=== PATIENT | male | born 1985 | race African-American/Black ===

== ENCOUNTER 2019-08-08 14:30 | Inpatient (IN) | payer OTHER ==
[2019-08-08 15:00] VITALS: BMI 20.5
--- NOTE | 2019-08-08 15:23 | HP ---
CIWA Score - Admission Criteria [facility] Guidelines: Admission for Medically Managed Detox: Requires at least one of the followin. CIWA greater than 12 2. Seizures within the past 24 hours 3. Delirium tremens within the past 24 hours 4. Hallucinations within the past 24 hours 5. Acute intervention needed for co occurring medical disorder 6. Acute intervention needed for co occurring psychiatric disorder 7. Severe withdrawal that cannot be handled at a lower level of care (continued vomiting, continued diarrhea, abnormal vital signs) requiring intravenous medication and/or fluids 8. Admitting History and Physical - Primary Care Physician PCP: none - Admission Chief Complaint: seeking rehab History of Present Illness: Seeking rehab for PCP and marijuana. PCP: 5 times daily, since 30 years old. Marijuana: 8 times daily, since 13 years old EtOH: 2/week 1/2 pint Gila. Last drink 2 days ago. Never withdrawn. First drink age 13. Tobaccc: 1.5 ppd since 13 years old Was recently in rehab at another facility but did not complete his course. Presently feels well. He is eager to begin rehab and states he wants to get his life together. No anxiety, tremors, agitation, GI upset, SOB, CP. PMH: none PSH: none Psych: anxiety/depression Meds: zoloft, seroquel has not been taking for the last 2 years, which was the last time he saw his psychiatrist All: none Soc: lives in [place] [facility] with his brother. Has never been employed. Sexually active with 1 partner. Uses condoms every time. - Smoking History Smoking history: Current every day smoker Have you smoked in the past 12 months: Yes Aproximately how many cigarettes per day: 30 - Alcohol/Substance Use Hx Alcohol Use: Yes History of Substance Use: reports: Marijuana - Social History Usual Living Arrangement: Yes: Other (with brother) ADL: Independent Occupation: unemployed History of Recent Travel: No Admission ROS S - HPI Allergies/Adverse Reactions: Allergies Allergy/AdvReac Type Severity Reaction Status Date / Time No Known Allergies Allergy Verified 08/08/19 14:56 Patient History - Patient Medical History Hx Asthma: No Hx Chronic Obstructive Pulmonary Disease (COPD): No Hx Cardiac Disorders: No Hx Hypertension: No Hx Seizures: No Hx Diabetes: No Hx Gastrointestinal Disorders: No Hx Genitourinary Disorders: No Hx Sexually Transmitted Disorders: No Hx Renal Disease (ESRD): No Hx Depression: Yes Hx Suicide Attempt: No Hx Schizophrenia: No - Patient Surgical History Past Surgical History: No Hx Neurologic Surgery: No Hx Cataract Extraction: No Hx Cardiac Surgery: No Hx Lung Surgery: No Hx Breast Surgery: No Hx Breast Biopsy: No Hx Abdominal Surgery: No Hx Appendectomy: No Hx Cholecystectomy: No Hx Genitourinary Surgery: No Hx Section: No Hx Orthopedic Surgery: No Anesthesia Reaction: No - PPD History Previous Implant?: Yes Documented Results: Negative w/o proof Implanted On Prior R Admission?: No - Smoking Cessation Smoking history: Current every day smoker Have you smoked in the past 12 months: Yes Aproximately how many cigarettes per day: 30 Hx Chewing Tobacco Use: No Initiated information on smoking cessation: Yes 'Breaking Loose' booklet given: 08/08/19 - Substances abused PCP Substance route: Smoking Frequency: Daily Amount used: 5blunts Age of first use: 30 Date of last use: 08/08/19 Marijuana/Hashish Substance route: Smoking Frequency: Daily Amount used: 8blunts Age of first use: 13 Date of last use: 08/07/19 Admission Physical Exam BHS - Vital Signs Vital Signs: Vital Signs - 24 hr 08/08/19 14:57 Temperature 97.5 F L Pulse Rate 61 Respiratory 18 Rate Blood Pressure 137/96 - Physical General Appearance: Yes: Within Normal Limits HEENTM: Yes: Within Normal Limits, EOMI, Hearing grossly Normal, Normal ENT Inspection, PRECIOUS Respiratory: Yes: Within Normal Limits, Lungs Clear, Normal Breath Sounds, No Respiratory Distress, No Accessory Muscle Use Neck: Yes: Within Normal Limits, No masses,lesions,Nodules Cardiology: Yes: Within Normal Limits, Regular Rhythm, Regular Rate, S1, S2. No : Murmur Abdominal: Yes: Within Normal Limits, Normal Bowel Sounds, Non Tender, Flat, Soft Back: Yes: Within Normal Limits, Normal Inspection Musculoskeletal: Yes: Within Normal Limits Extremities: Yes: Within Normal Limits, Normal Inspection, Non-Tender Neurological: Yes: Within Normal Limits, carbon plant grinder II-XII NML intact, Fully Oriented, Alert, Motor Strength 5/5, Normal Mood/Affect, Normal Response Integumentary: Yes: Within Normal Limits Inpatient Rehab Admission - Rehab Decision to Admit Inpatient rehab admission?: Yes - Initial Determination Are CD services needed?: Yes Free of communicable disease: Yes Not in need of hospitalization: Yes - Rehab Admission Criteria Previous failed treatment: Yes Poor recovery environment: Yes Comorbidities: Yes Lacks judgement: Yes Patient is meeting Inpatient Rehab admission criteria:: Yes
[2019-08-08] MEDS ORDERED: P-EPHED 60MG/TRIPROLIDI 2.5MG TABLET PO PRN (15:32)
[2019-08-08] MEDS ORDERED: MENTHOL/PHENOL 1 EACH UD MM PRN (15:32)
[2019-08-08] MEDS ORDERED: MAGNESIUM CITRATE 300 ML BOTTLE PO PRN (15:32)
[2019-08-08] MEDS ORDERED: ACETAMINOPHEN 325 MG TABLET (FP) PO PRN (15:32)
[2019-08-08] MEDS ORDERED: guaiFENesin 200 MG/10 ML 10 ML UNIT-DOSE CUPS PO PRN (15:32)
[2019-08-08] MEDS ORDERED: IBUPROFEN 400 MG TABLET (FP) PO PRN (15:32)
[2019-08-08] MEDS ORDERED: LOPERAMIDE HCL 2 MG CAPSULE PO PRN (15:32)
[2019-08-08] MEDS ORDERED: MAG HYDROX/AL HYDROX/SIMETH 30 ML UNIT-DOSE CUP PO PRN (15:32)
[2019-08-08] MEDS ORDERED: MAGNESIUM HYDROX 2400MG/30ML ORAL SUSPENSION 30 ML CUP PO PRN (15:32)
[2019-08-08] MEDS: NICOTINE 21 MG/24 HOURS TOPICAL PATCH TD SCH (16:46)
[2019-08-08] MEDS ORDERED: TUBERCULIN PPD 5 TU/0.1ML VIAL ID ONE ×2 (16:50→16:52)
--- NOTE | 2019-08-08 17:04 | PN ---
S Progress Note Note: Psychiatric nurse practitioner note: [employer] [place] approached patient for psychiatric consultation. Patient stated to display card writer , " I just got here. Let me get settled and decide if I want to stay. It feels like a psych unit so i'm not sure if i'm going to stay. If i'm here tomorrow you can see me." Psychiatric consultation deferred for tomorrow.
[2019-08-08] MEDS: THIAMINE HCL 100 MG TABLET (FP) PO SCH (21:46)
[2019-08-08] MEDS: MELATONIN 5 MG TABLETS PO PRN (21:46)
[2019-08-09] MEDS: NICOTINE 21 MG/24 HOURS TOPICAL PATCH TD SCH (10:12)
[2019-08-09] MEDS: PRENATAL VITAMINS W/ FOLIC ACID TABLET (FP) PO SCH (10:12)
[2019-08-09 11:39] LABS: HEMATOCRIT 41.9 % (35.4-49); HEMOGLOBIN 13.9 GM/dL (11.7-16.9); MCH 29.5 pg (25.7-33.7); MCHC 33.2 g/dl (32.0-35.9); PLATELET COUNT 186 K/MM3 (134-434); RDW 12.7 % (11.9-15.9); WHITE BLOOD COUNT 3.7 K/mm3 (4.0-10.0)
[2019-08-09 11:50] LABS: ALBUMIN 3.8 g/dl (3.4-5.0); BLOOD UREA NITROGEN 15.2 mg/dL (7-18); CALCIUM 9.1 mg/dL (8.5-10.1); CREATININE 0.9 mg/dL (0.55-1.3); TOT PROT 7.4 g/dl (6.4-8.2)
--- NOTE | 2019-08-09 14:58 | CONSULT ---
[facility] Psychiatric Consult - Data Date of interview: 08/09/19 Admission source: [facility] Identifying data: First visit to [facility] and admission to [address] for this 34 y/o AA male self-referred for rehabilitation treatment. Came to address his MARILYN issues (cannabis, phencyclidine, nicotine) co-morbid with MDD and chronic insomnia. Patient is single, no dependents, homeless, unemployed and supported by his fiancee (self-report). Substance Abuse History: Discussed with the patient. Details in current [facility] report as folllows : Smoking history: Current every day smoker. Have you smoked in the past 12 months: Yes. Aproximately how many cigarettes per day: 30. Hx Chewing Tobacco Use: No. Initiated information on smoking cessation: Yes. 'Breaking Loose' booklet given: 08/08/19. - Substances abused. PCP. Substance route: Smoking. Frequency: Daily. Amount used: 5blunts. Age of first use: 30. Date of last use: 08/08/19. Marijuana/Hashish. Substance route: Smoking. Frequency: Daily. Amount used: 8blunts. Age of first use: 13. Date of last use: 08/07/19 Medical History: Patient endorses good general health. Psychiatric History: Patient denies history of psychiatric hospitalizations. He is currrently seeing a psychiatrist at the [facility] in [facility]. Mr Ferrari declares that he has been diagnosed with MDD + Anxiety Disorder. Prescribed seroquel 50 mg/hs + zoloft 50 mg/day. Patient denies history of suicide attempts. Physical/Sexual Abuse/Trauma History: Patient denies. Additional Comment: Toxicology not available for review. Mental Status Exam - Mental Status Exam Alert and Oriented to: Time, Place, Person Cognitive Function: Good Patient Appearance: Well Groomed (thin habitus ) Mood: Hopeful, Euthymic Affect: Appropriate, Normal Range Patient Behavior: Fatigued, Appropriate, Cooperative Speech Pattern: Clear, Appropriate Voice Loudness: Normal Thought Process: Intact, Goal Oriented Thought Disorder: Not Present Hallucinations: Denies Suicidal Ideation: Denies Homicidal Ideation: Denies Insight/Judgement: Fair Sleep: Poorly, Difficulty falling asleep Appetite: Good Gait/Station: Normal Psychiatric Findings - Problem List ([place] 1, 2,3) (1) Cannabis dependence Current Visit: Yes Status: Chronic (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 Sleep hygiene. Support. Groups. Medications resumed at patient's request : seroquel 50 mg po hs + zoloft 50 mg po daily. Side effects/benefits of both drugs are discussed with patient. Consent (verbal) granted to MD. Ibarra.
[2019-08-09] MEDS: QUEtiapine FUMARATE 50 MG TABLET PO SCH (21:02)
[2019-08-09] MEDS: MELATONIN 5 MG TABLETS PO PRN (21:02)
[2019-08-09] MEDS: THIAMINE HCL 100 MG TABLET (FP) PO SCH (21:38)
[2019-08-10] MEDS: PRENATAL VITAMINS W/ FOLIC ACID TABLET (FP) PO SCH (10:31)
[2019-08-10] MEDS: SERTRALINE HCL 50 MG TABLET (FP) PO SCH (10:31)
[2019-08-10] MEDS: NICOTINE 21 MG/24 HOURS TOPICAL PATCH TD SCH (10:32)
[2019-08-10] MEDS: QUEtiapine FUMARATE 50 MG TABLET PO SCH (21:36)
[2019-08-10] MEDS: THIAMINE HCL 100 MG TABLET (FP) PO SCH (21:41)
--- NOTE | 2019-08-11 08:11 | PN ---
Teaching Attending Note Name of Resident: Diomedes Olvera ATTENDING PHYSICIAN STATEMENT I saw and evaluated the patient. I reviewed the resident's note and discussed the case with the resident. I agree with the resident's findings and plan as documented. SUBJECTIVE: I agree with resident's subjective findings OBJECTIVE: I agree with resident's objective findings ASSESSMENT AND PLAN: I agree with admission and choice of treatment. Dr. Lazcano
[2019-08-11] MEDS: NICOTINE 21 MG/24 HOURS TOPICAL PATCH TD SCH (10:21)
[2019-08-11] MEDS: SERTRALINE HCL 50 MG TABLET (FP) PO SCH (10:21)
[2019-08-11] MEDS: PRENATAL VITAMINS W/ FOLIC ACID TABLET (FP) PO SCH (10:21)
[2019-08-11] MEDS: NICOTINE POLACRILEX 2 MG GUM BUC PRN ×2 (13:22→16:35)
[2019-08-11] MEDS: THIAMINE HCL 100 MG TABLET (FP) PO SCH (21:09)
[2019-08-11] MEDS: QUEtiapine FUMARATE 50 MG TABLET PO SCH (21:09)
[2019-08-12] MEDS: PRENATAL VITAMINS W/ FOLIC ACID TABLET (FP) PO SCH (10:07)
[2019-08-12] MEDS: NICOTINE POLACRILEX 2 MG GUM BUC PRN ×2 (10:07→18:43)
[2019-08-12] MEDS: SERTRALINE HCL 50 MG TABLET (FP) PO SCH (10:07)
[2019-08-12] MEDS: NICOTINE 21 MG/24 HOURS TOPICAL PATCH TD SCH (10:16)
[2019-08-12] MEDS: QUEtiapine FUMARATE 50 MG TABLET PO SCH (21:36)
[2019-08-12] MEDS: THIAMINE HCL 100 MG TABLET (FP) PO SCH (21:42)
[2019-08-13 07:02] VITALS: BP 116/69; PULSE 65; TEMP 98.4
[2019-08-13] MEDS: SERTRALINE HCL 50 MG TABLET (FP) PO SCH (10:02)
[2019-08-13] MEDS: NICOTINE 21 MG/24 HOURS TOPICAL PATCH TD SCH (10:03)
[2019-08-13] MEDS: PRENATAL VITAMINS W/ FOLIC ACID TABLET (FP) PO SCH (10:03)
[2019-08-13] MEDS: NICOTINE POLACRILEX 2 MG GUM BUC PRN (10:03)
--- NOTE | 2019-08-13 13:07 | DS ---
[facility] Rehab Discharge Summary - [facility] Rehab Discharge Summary Admission Date: 08/08/19 Discharge Date: 08/13/19 - History Present History: Cannabis dependence, PCP dependence Pertinent Past History: In rehab for PCP and marijuana. PCP: 5 times daily, since 30 years old. Marijuana: 8 times daily, since 13 years old EtOH: 2/week 1/2 pint Gila. Last drink 2 days ago. Never withdrawn. First drink age 13. Tobaccc: 1.5 ppd since 13 years old Was recently in rehab at another facility but did not complete his course No anxiety, tremors, agitation, GI upset, SOB, CP. PMH: none PSH: none Psych: anxiety/depression Meds: zoloft, seroquel has not been taking for the last 2 years, which was the last time he saw his psychiatrist All: none Soc: lives in [place] [facility] [place] with his brother. Has never been employed. Sexually active with 1 partner. Uses condoms every time. - Discharge Physical Exam Vital Signs: Vital Signs Temperature 98.4 F 08/13/19 07:01 Pulse Rate 65 08/13/19 07:01 Respiratory Rate 18 08/13/19 07:01 Blood Pressure 116/69 08/13/19 07:01 O2 Sat by Pulse Oximetry (%) Pertinent Admission Physical Exam Findings: Physical General Appearance: No apparent distress HEENTM: Normocephalic, missing teeth, PERRLA Respiratory: Lungs Clear, Neck: supple Cardiology: S1, S2. Abdominal: +Bowel Sounds, Non Tender, Flat, Soft Musculoskeletal: Full weight bearing, steady gait Neurological: pst manager II-XII NML intact, - Treatment Discharge Condition: Outpatient referral accepted (Medically stable for discharge. Patient will be going to [facility] Hospital Course: patient attended groups, had 1:1 with his counselor. Was seen by the psychiatric service. He had no acute or urgent medical problems while in rehab. - Medication Discharge Medications: Ambulatory Orders Quetiapine Fumarate [Seroquel -] 50 mg PO HS 08/08/19 Sertraline HCl [Zoloft -] 50 mg PO DAILY 08/08/19 - Medication-Assisted Treatment (MAT) Medication-Assisted Treatment (MAT): No - Discharge Instructions Diet, activity, other medical instructions: Diet: as tolerated Activity: as tolerated Other medical instructions: Please follow up with aftercare referral. 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
--- NOTE | 2019-08-13 14:26 | PN ---
[facility] Progress Note Note: Patient is discharged today. Scripts for 30 days of medications(Seroquel 50 mg/ hs, Zoloft 50 mg/day) is electronically transmitted to [facility] at [address] [place], [place] [id number]
== END 2019-08-13 13:30 | disposition home or self-care (01) | DRG 772 ==
LOC: YASAS 14:30 → Y3W 15:24
PROVIDERS: ADMIT Allergy & Immunology; ATTEND Allergy & Immunology
PROC: HZ42ZZZ Group Counseling for Substance Abuse Treatment, Cognitive-Behavioral (ICD-10-PCS; principal; 2019-08-08)
DX: F16.20 Hallucinogen dependence, uncomplicated (principal); F12.20 Cannabis dependence, uncomplicated; F17.210 Nicotine dependence, cigarettes, uncomplicated; G47.00 Insomnia, unspecified
CPT/HCPCS: 36415; 80053; 85027; 86593; 87389

== ENCOUNTER 2023-03-07 15:23 | Inpatient (IN) | payer OTHER ==
[2023-03-07 21:01] VITALS: BMI 20.9
[2023-03-08] MEDS ORDERED: BISMUTH SUBSALICYLATE 524 MG/30 ML PO PRN (00:51)
[2023-03-08] MEDS ORDERED: MAGNESIUM HYDROX 2400MG/30ML ORAL SUSPENSION 30 ML CUP PO PRN (00:51)
[2023-03-08] MEDS ORDERED: guaiFENesin 600 MG TABLET.ER (FP) PO PRN (00:51)
[2023-03-08] MEDS ORDERED: ACETAMINOPHEN 325 MG TABLET (FP) PO PRN (00:51)
[2023-03-08] MEDS ORDERED: P-EPHED 60MG/TRIPROLIDI 2.5MG TABLET PO PRN (00:51)
[2023-03-08] MEDS ORDERED: hydrOXYzine PAMOATE 25 MG CAPSULE (FP) PO PRN (00:51)
[2023-03-08] MEDS ORDERED: IBUPROFEN 400 MG TABLET (FP) PO PRN (00:51)
[2023-03-08] MEDS ORDERED: MAG HYDROX/AL HYDROX/SIMETH 30 ML UNIT-DOSE CUP PO PRN (00:51)
[2023-03-08] MEDS ORDERED: BENZOCAINE/MENTHOL (CHLORASEPTIC ) LOZENGE MM PRN (00:51)
[2023-03-08] MEDS ORDERED: BENZONATATE 200 MG CAPSULE PO PRN (00:51)
[2023-03-08] MEDS ORDERED: DICYCLOMINE HCL 10 MG CAPSULE PO PRN (00:51)
[2023-03-08] MEDS ORDERED: METHOCARBAMOL 500 MG TABLET PO PRN (00:51)
[2023-03-08] MEDS ORDERED: POLYETHYLENE GLYCOL (HEALTHYLAX) 3350 17 GM PACKET PO PRN (00:51)
[2023-03-08] MEDS ORDERED: LOPERAMIDE HCL 2 MG CAPSULE PO PRN (00:51)
[2023-03-08] MEDS ORDERED: ONDANSETRON *ODT* 4 MG TABLET SL PRN (00:51)
[2023-03-08] MEDS ORDERED: IBUPROFEN 600 MG TABLET (FP) PO PRN (00:51)
[2023-03-08 06:16] VITALS: RESP 16
[2023-03-08 09:39] VITALS: PULSE 60
[2023-03-08] MEDS ORDERED: PRENATAL VITAMINS W/ FOLIC ACID TABLET (FP) PO SCH (10:00)
[2023-03-08 12:26] LABS: POTASSIUM 3.8 mmol/L (3.5-5.1)
[2023-03-08 12:29] LABS: HEMATOCRIT 41.4 % (35.4-49); HEMOGLOBIN 13.1 GM/dL (11.7-16.9); MCH 28.7 pg (25.7-33.7); MCHC 31.7 g/dl (32.0-35.9); MEAN CELL VOLUME 90.6 fl (80-96); MEAN PLT VOLUME 10.5 fl (7.5-11.1); PLATELET COUNT 181 10^3/uL (134-434); RBC 4.57 M/mm3 (4.00-5.60); RDW 13.3 % (11.9-15.9)
[2023-03-08 12:32] LABS: ALBUMIN 3.8 g/dl (3.4-5.0); BLOOD UREA NITROGEN 14.7 mg/dL (7-18); CALCIUM 8.6 mg/dL (8.5-10.1)
[2023-03-08 12:34] LABS: CREATININE 0.8 mg/dL (0.55-1.3)
[2023-03-08 12:36] LABS: TOT PROT 7.7 g/dl (6.4-8.2)
[2023-03-08 13:02] VITALS: BP 129/83; TEMP 98.5
[2023-03-08] MEDS ORDERED: THIAMINE HCL 100 MG TABLET (FP) PO SCH (22:00)
[2023-03-08] MEDS ORDERED: MELATONIN 5 MG TABLETS PO SCH (22:00)
== END 2023-03-08 12:47 | disposition home or self-care (01) | DRG 775 ==
LOC: YASAS 15:23 → Y3N 03-08 01:34
PROVIDERS: ADMIT Allergy & Immunology; ATTEND Surgery
PROC: HZ2ZZZZ Detoxification Services for Substance Abuse Treatment (ICD-10-PCS; principal; 2023-03-08)
DX: F10.20 Alcohol dependence, uncomplicated (principal); F16.20 Hallucinogen dependence, uncomplicated; F12.20 Cannabis dependence, uncomplicated; F17.210 Nicotine dependence, cigarettes, uncomplicated; G47.00 Insomnia, unspecified; Z86.59 Personal history of other mental and behavioral disorders; Z28.310 Unvaccinated for COVID-19; Z28.9 Immunization not carried out for unspecified reason
CPT/HCPCS: 36415; 80053; 80307; 85027; 86780; 87635

== ENCOUNTER 2023-05-25 18:39 | Inpatient (IN) | payer OTHER ==
[2023-05-25 21:06] VITALS: BMI 19.3
[2023-05-25] MEDS ORDERED: MAGNESIUM HYDROX 2400MG/30ML ORAL SUSPENSION 30 ML CUP PO PRN (22:52)
[2023-05-25] MEDS ORDERED: ACETAMINOPHEN 325 MG TABLET (FP) PO PRN (22:52)
[2023-05-25] MEDS ORDERED: P-EPHED 60MG/TRIPROLIDI 2.5MG TABLET PO PRN (22:52)
[2023-05-25] MEDS ORDERED: DICYCLOMINE HCL 10 MG CAPSULE PO PRN (22:52)
[2023-05-25] MEDS ORDERED: METHOCARBAMOL 500 MG TABLET PO PRN (22:52)
[2023-05-25] MEDS ORDERED: MAG HYDROX/AL HYDROX/SIMETH 30 ML UNIT-DOSE CUP PO PRN (22:52)
[2023-05-25] MEDS ORDERED: BISMUTH SUBSALICYLATE 524 MG/30 ML PO PRN (22:52)
[2023-05-25] MEDS ORDERED: ONDANSETRON *ODT* 4 MG TABLET SL PRN (22:52)
[2023-05-25] MEDS ORDERED: BENZONATATE 200 MG CAPSULE PO PRN (22:52)
[2023-05-25] MEDS ORDERED: guaiFENesin 600 MG TABLET.ER (FP) PO PRN (22:52)
[2023-05-25] MEDS ORDERED: IBUPROFEN 400 MG TABLET (FP) PO PRN (22:52)
[2023-05-25] MEDS ORDERED: IBUPROFEN 600 MG TABLET (FP) PO PRN (22:52)
[2023-05-25] MEDS ORDERED: POLYETHYLENE GLYCOL (HEALTHYLAX) 3350 17 GM PACKET PO PRN (22:52)
[2023-05-25] MEDS ORDERED: hydrOXYzine PAMOATE 25 MG CAPSULE (FP) PO PRN (22:52)
[2023-05-25] MEDS ORDERED: BENZOCAINE/MENTHOL (CHLORASEPTIC ) LOZENGE MM PRN (22:52)
[2023-05-25] MEDS ORDERED: LOPERAMIDE HCL 2 MG CAPSULE PO PRN (22:52)
[2023-05-26] MEDS: PRENATAL VITAMINS W/ FOLIC ACID TABLET (FP) PO SCH (11:07)
[2023-05-26] MEDS ORDERED: THIAMINE HCL 100 MG TABLET (FP) PO SCH (22:00)
[2023-05-26] MEDS ORDERED: QUEtiapine FUMARATE 50 MG TABLET PO SCH (22:00)
[2023-05-26] MEDS ORDERED: MELATONIN 5 MG TABLETS PO SCH (22:00)
[2023-05-27 09:01] VITALS: PULSE 78
[2023-05-27] MEDS ORDERED: SERTRALINE HCL 50 MG TABLET (FP) PO SCH (10:00)
[2023-05-27] MEDS ORDERED: diazePAM 5 MG TABLET PO PRN (10:34)
[2023-05-27] MEDS: PRENATAL VITAMINS W/ FOLIC ACID TABLET (FP) PO SCH (10:38)
[2023-05-27] MEDS ORDERED: diazePAM 5 MG TABLET PO SCH (11:00)
[2023-05-27 12:42] VITALS: BP 123/75; RESP 17; TEMP 98.2
[2023-05-29] MEDS ORDERED: diazePAM 5 MG TABLET PO SCH (06:00)
[2023-05-30] MEDS ORDERED: diazePAM 5 MG TABLET PO SCH (06:00)
[2023-05-31] MEDS ORDERED: diazePAM 5 MG TABLET PO ONE (06:00)
== END 2023-05-27 13:53 | disposition left against medical advice (07) | DRG 770 ==
LOC: YASAS 18:39 → Y3N 23:55
PROVIDERS: ADMIT Allergy & Immunology; ATTEND Surgery
PROC: HZ2ZZZZ Detoxification Services for Substance Abuse Treatment (ICD-10-PCS; principal; 2023-05-25)
DX: F10.230 Alcohol dependence with withdrawal, uncomplicated (principal); F16.20 Hallucinogen dependence, uncomplicated; F12.20 Cannabis dependence, uncomplicated; F17.210 Nicotine dependence, cigarettes, uncomplicated; F19.24 Other psychoactive substance dependence with psychoactive substance-induced mood disorder; F32.9 Major depressive disorder, single episode, unspecified; G47.00 Insomnia, unspecified; Z28.310 Unvaccinated for COVID-19; Z28.9 Immunization not carried out for unspecified reason
CPT/HCPCS: 87635